=== PATIENT | male | born 2000 | race Caucasian/White ===

== ENCOUNTER 2022-12-21 12:31 | Emergency (ER) | payer SELFPAY ==
[2022-12-21 12:47] VITALS: BP 108/72; PULSE 66; RESP 18; TEMP 36.7; O2SAT 96; BMI 27.3
--- NOTE | 2022-12-21 13:00 | ED_ITS ---
HPI - General Adult General Chief complaint: General Medical Stated complaint: Sore Throat Infected Finger Related Data Allergies Allergy/AdvReac Type Severity Reaction Status Date / Time Unable to Assess Allergy Unverified 12/21/22 13:03 [facility] Social History Social History Advance Directives: No Physical Exam ED Vital Signs: Vital Signs - 24 hr 12/21/22 12:47 Temperature 98.0 F Pulse Rate 66 Respiratory Rate 18 Blood Pressure 108/72 Pulse Oximetry 96 Oxygen Delivery Method Room Air BMI result Body Mass Index 27.3 Course Course Course Narrative: This is an RME: Additional HPI, ROS, PE not included below will be deferred to primary provider. This is a 22-year-old Bengali speaking individual presenting to the emergency department with complaints of right 5th finger swelling and pain as well as cough, runny nose slight sore throat. Patient states that he had a surgery on his right 5th finger showed half years ago due to a ?blocked artery?. Finger does not appear infected. Plan: Viral swabs, x-ray Reevaluation(s) Reevaluation #1: Pt eloped prior to receiving treatment and full evaluation Discharge Plan Discharge Clinical Impression: Finger pain, Acute sore throat Patient Disposition: Left W/O Completing Treatment Discharge Date/Time: 12/21/22 14:56
== END 2022-12-21 14:56 | disposition left against medical advice (07) ==
PROVIDERS: Emergency Provider Emergency Medicine
DX: J02.9 Acute pharyngitis, unspecified (principal); M79.644 Pain in right finger(s)
CPT/HCPCS: 99281